=== PATIENT | female | born 1990 | race Caucasian/White ===

== ENCOUNTER 2018-05-21 10:33 | Emergency (ER) | payer BC, OTHER ==
[2018-05-21] MEDS ORDERED: ONDANSETRON 4 MG/2 ML VIAL IVP ONE (11:19)
[2018-05-21] MEDS ORDERED: NS 1,000 ML IV ONE (11:19)
[2018-05-21] MEDS ORDERED: LABETALOL HCL 5 MG/ML 20 ML MDV ONE (11:22)
[2018-05-21 11:52] LABS: PLATELET COUNT 347 10^3/uL (150-400)
[2018-05-21] MEDS ORDERED: ONDANSETRON 4MG PREPACK#2 BTL TAKEHOME ONE (13:29)
--- NOTE | 2018-05-21 13:29 | EDPHY ---
H & P Stated Complaint: abd pain Time Seen by Provider: 05/21/18 11:06 HPI/ROS: Chief complaint: Abdominal discomfort with nausea, vomiting and diarrhea History of present illness: This is a 28-year-old female who presents to the emergency department for abdominal discomfort with associated nausea, vomiting and diarrhea. She is visiting from [place]. She has been here for 5 days. She does report she has been drinking heavily with friends. She was drinking hard liquor all last night. She has also use some marijuana. Today she started to feel unwell with diffuse abdominal cramping. Multiple episodes of vomiting and diarrhea described as nonbloody. No report of fever. No sick contacts. No recent antibiotic use. Review of systems: A 10 point review of systems was obtained and other than described above was negative - Personal History LMP (Females 10-55): 1-7 Days Ago Current Tetanus/Diphtheria Vaccine: Yes Current Tetanus Diphtheria and Acellular Pertussis (TDAP): Yes - Medical/Surgical History Hx Asthma: No Hx Chronic Respiratory Disease: No Hx Diabetes: No Hx Cardiac Disease: No Hx Renal Disease: No Hx Cirrhosis: No Hx Alcoholism: No Hx HIV/AIDS: No Hx Splenectomy or Spleen Trauma: No Other PMH: denies - Social History Smoking Status: Never smoked - Physical Exam Exam: General Appearance: Alert, nontoxic. Eyes: Pupils equal and round no pallor or injection. ENT, Mouth: Mucous membranes moist. Respiratory: There are no retractions, lungs are clear to auscultation. Cardiovascular: Regular rate and rhythm. Gastrointestinal: Bowel sounds are normal. The abdomen is soft, nondistended and nontender to palpation. Neurological: Alert and oriented x4. Skin: Warm and dry, no rashes. Musculoskeletal: Ambulating well. Psychiatric: Patient is oriented X 3, there is no agitation. Constitutional: Initial Vital Signs Temperature (C) 37 C 05/21/18 10:36 Heart Rate 128 H 05/21/18 10:36 Respiratory Rate 20 05/21/18 10:36 Blood Pressure 139/89 H 05/21/18 10:36 O2 Sat (%) 97 05/21/18 10:36 O2 Delivery Mode Room Air Allergies/Adverse Reactions: No Known Allergies Allergy (Unverified 05/21/18 10:36) Home Medications: Medication Instructions Recorded Advil 05/21/18 Medical Decision Making ED Course/Re-evaluation: Patient seen under the supervision of my secondary supervising physician Dr. Curtis Vu. Patient presents to the emergency department with abdominal discomfort with nausea, vomiting and diarrhea. She does report extensive alcohol consumption and marijuana use over the last few days. She is nontoxic. She has a benign abdominal exam. Blood studies are largely unremarkable. She is symptomatically treated and states she is feeling much better on re- evaluation. She is tolerating oral challenges. Her abdominal exam remains benign prior to discharge. Home care is discussed. She is to follow up with her primary care doctor for recheck this week. Strict return precautions are discussed. The patient has voiced understanding and agreement with them. Differential Diagnosis: Included but not limited to dehydration, gastritis, gastroenteritis, biliary tract disease, pancreatitis, colitis, and associated complications - Data Points Laboratory Results: Laboratory Results 05/21/18 11:30 05/21/18 11:30 05/21/18 05/21/18 05/21/18 11:30 11:30 11:30 WBC RBC Hgb Hct MCV MCH MCHC RDW Plt Count MPV Neut % (Auto) Lymph % (Auto) [place] % (Auto) Eos % (Auto) Baso % (Auto) Nucleat RBC Rel Count Absolute Neuts (auto) Absolute Lymphs (auto) Absolute Monos (auto) Absolute Eos (auto) Absolute Basos (auto) Absolute Nucleated RBC Immature Gran % Immature Gran # Sodium 138 mEq/L mEq/L (135-145) Potassium 3.6 mEq/L mEq/L (3.3-5.0) Chloride 102 mEq/L mEq/L (97-110) Carbon Dioxide 23 mEq/l mEq/l (22-31) Anion Gap 13 mEq/L mEq/L (6-14) BUN 11 mg/dL mg/dL (7-23) Creatinine 0.7 mg/dL mg/dL (0.6-1.0) Estimated GFR > 60 Glucose 100 mg/dL mg/dL (70-100) Calcium 9.8 mg/dL mg/dL (8.5-10.4) Total Bilirubin 0.6 mg/dL mg/dL (0.1-1.4) Conjugated Bilirubin 0.1 mg/dL mg/dL (0.0-0.5) Unconjugated Bilirubin 0.5 mg/dL mg/dL (0.0-1.1) AST 26 IU/L IU/L (14-46) ALT 24 IU/L IU/L (9-52) Alkaline Phosphatase 52 IU/L IU/L (38-126) Total Protein 7.9 g/dL g/dL (6.3-8.2) Albumin 4.8 g/dL g/dL (3.5-5.0) Lipase 60 IU/L IU/L (23-300) Beta HCG, Qual NEGATIVE 05/21/18 11:30 WBC 10.00 10^3/uL H 10^3/uL (3.80-9.50) RBC 4.44 10^6/uL 10^6/uL (4.18-5.33) Hgb 13.4 g/dL g/dL (12.6-16.3) Hct 38.6 % % (38.0-47.0) MCV 86.9 fL fL (81.5-99.8) MCH 30.2 pg pg (27.9-34.1) MCHC 34.7 g/dL g/dL (32.4-36.7) RDW 12.5 % % (11.5-15.2) Plt Count 347 10^3/uL 10^3/uL (150-400) MPV 9.7 fL fL (8.7-11.7) Neut % (Auto) 71.5 % % (39.3-74.2) Lymph % (Auto) 19.3 % % (15.0-45.0) [place] % (Auto) 8.2 % % (4.5-13.0) Eos % (Auto) 0.1 % L % (0.6-7.6) Baso % (Auto) 0.5 % % (0.3-1.7) Nucleat RBC Rel Count 0.0 % % (0.0-0.2) Absolute Neuts (auto) 7.15 10^3/uL H 10^3/uL (1.70-6.50) Absolute Lymphs (auto) 1.93 10^3/uL 10^3/uL (1.00-3.00) Absolute Monos (auto) 0.82 10^3/uL H 10^3/uL (0.30-0.80) Absolute Eos (auto) 0.01 10^3/uL L 10^3/uL (0.03-0.40) Absolute Basos (auto) 0.05 10^3/uL 10^3/uL (0.02-0.10) Absolute Nucleated RBC 0.00 10^3/uL 10^3/uL (0-0.01) Immature Gran % 0.4 % % (0.0-1.1) Immature Gran # 0.04 10^3/uL 10^3/uL (0.00-0.10) Sodium Potassium Chloride Carbon Dioxide Anion Gap BUN Creatinine Estimated GFR Glucose Calcium Total Bilirubin Conjugated Bilirubin Unconjugated Bilirubin AST ALT Alkaline Phosphatase Total Protein Albumin Lipase Beta HCG, Qual Medications Given: Discontinued Medications Sodium Chloride (Ns) 1,000 mls @ 0 mls/hr IV EDNOW ONE; Wide Open PRN Reason: Protocol Stop: 05/21/18 11:20 Last Admin: 05/21/18 11:38 Dose: 1,000 mls Ondansetron HCl (Zofran) 4 mg IVP EDNOW ONE Stop: 05/21/18 11:20 Last Admin: 05/21/18 11:41 Dose: 4 mg Ondansetron HCl (Zofran Odt 4 Mg Prepack#2) 1 btl TAKEHOME EDNOW ONE Stop: 05/21/18 13:30 Last Admin: 05/21/18 13:54 Dose: 1 btl Departure - Departure Disposition: Home, Routine, Self-Care Clinical Impression: Abdominal pain Condition: Good Instructions: Ondansetron (By mouth), Acute Abdominal Pain (ED) Additional Instructions: Follow-up with her primary care doctor when you return home Drink plenty of fluids to stay hydrated I recommend you deny drink alcohol use other drugs If symptoms worsen or new symptoms develop return to this emergency room or the closest facility Referrals: NONE *PRIMARY CARE P,. [Primary Care Provider] - As per Instructions [facility],. [Clinic] - As per Instructions
[2018-05-21 13:56] VITALS: BP 120/73
== END 2018-05-21 13:56 | disposition home or self-care (01) ==
DX: R10.9 Unspecified abdominal pain (principal); E86.9 Volume depletion, unspecified
CPT/HCPCS: 96374; J2405